=== PATIENT | female | born 1975 | race Caucasian/White ===

== ENCOUNTER 2018-06-05 12:43 | Emergency (ER) | payer MEDICAID ==
[2018-06-05] MEDS: HYDROCODONE/APAP (5/325) TAB PO (14:26)
== END 2018-06-05 16:18 | disposition home or self-care (01) ==
LOC: E/R 12:43
DX: S92.352A Displaced fracture of fifth metatarsal bone, left foot, initial encounter for closed fracture (principal); W01.0XXA Fall on same level from slipping, tripping and stumbling without subsequent striking against object, initial encounter; Y92.9 Unspecified place or not applicable
CPT/HCPCS: 73510; 73562; 73610; 81025; 99284-25